=== PATIENT | female | born 1965 | race Caucasian/White ===

== ENCOUNTER → 2017-09-06 06:27 | Outpatient (CLI) | payer OTHER, SELFPAY ==
[2017-09-06 07:38] LABS: Absolute Lymphocyte Count 1.82 X10^3/ul (0.83-4.51); Absolute Neutrophil Count 4.2 X10^3/uL (2.0-7.7); Basophil# 0.06 X10^3/uL; Basophil% 0.9 % (0-1); Eosinophil# 0.26 X10^3/uL; Eosinophils% 3.7 % (0-5); Hematocrit 43.4 % (37-47); Lymphocyte # 1.82 X10^3/ul (4.0); Lymphocyte % 26.1 % (19-41); Mean Corp Hgb Conc 34.6 g/gl (32-36); Mean Corpuscular Hgb 30.9 pg (27.0-32.0); Mean Corpuscular Volume 89.3 fL (81-99); Mean Platelet Vol. 10.2 fl (6.2-12.0); Monocyte# 0.61 X10^3/uL; Monocyte% 8.8 % (0-10); Neutrophil # 4.22 X10^3/uL (2.7-7.7); Neutrophil % 60.5 % (47-70); Platelet Count 295 K/mm3 (150-450); RBC Distribution Width CV 12.7 % (11.6-14.6); RBC Distribution Width SD 41.2 fl (35.1-43.9); Red Blood Count 4.86 M/mm3 (4.2-5.4)
[2017-09-06 07:47] LABS: POSITIVE COUNT NO; POSITIVE DIFFERENTIAL NO; POSITIVE MORPHOLOGY NO
[2017-09-06 08:08] LABS: ALB/GLOB Ratio 1.1 RATIO (0.9-2.4); AST(SGOT) 14 U/L (15-37); Alanine Aminotransfer ALT/SGPT 28 U/L (13-56); Albumin, Serum 3.8 g/dL (3.2-5.0); Alkaline Phosphatase 84 U/L (45-117); Anion Gap 5 (5-15); BUN 17 mg/dL (7-18); BUN/Creat Ratio 29.2 RATIO (10-20); Calcium,Total 8.7 mg/dL (8.5-10.1); Chloride 106 mmol/L (98-107); Cholesterol 227 mg/dL (200); Creatinine, Serum 0.58 mg/dL (0.55-1.02); EST Glomerular Filtration Rate 115 mL/min (>60); Est Glom Filt Rate - Afr Amer 140 mL/min (>60); Globulin 3.4 g/dL (2.2-4.2); Glucose 84 mg/dL (74-106); High Density Lipoprotein 48 mg/dL; Protein, Total 7.2 g/dL (6.4-8.2); Sodium Level 139 mmol/L (136-145); Triglycerides 123 mg/dL; Very Low Density Lipoprotein 25 mg/dL (5-40)
== END ==
PROVIDERS: Family Provider Family Medicine; PCP Family Medicine; Visit Provider Family Medicine
DX: Z00.00 Encounter for general adult medical examination without abnormal findings (principal); I10 Essential (primary) hypertension
CPT/HCPCS: 36415; 80053; 80061; 85025

== ENCOUNTER → 2018-01-30 08:17 | Outpatient (CLI) | payer OTHER, SELFPAY ==
--- NOTE | 2018-01-30 08:20 | BI_ITS ---
MAMMOGRAPHY - BILATERAL SCREENING REASON FOR EXAM: Female, 53 years old. Routine annual screening examination. PERTINENT HISTORY: Non-contributory. TECHNIQUE: Digital bilateral breast juancarlos (3D mammographic acquisition) in the CC and MLO projections. 2-D mediolateral oblique (MLO) and craniocaudad (CC) views of both breasts were obtained. CAD: Full Field Digital Mammography with Computer Added Detection was performed. COMPARISON: Comparison is made with prior examination of March 17, 2015. FINDINGS: Breast Composition: There are scattered areas of fibroglandular density. There are no dominant masses or suspicious calcifications. Stable appearance of the small bilateral axillary lymph nodes. No other significant abnormalities are identified. There has been no significant change since the prior study. BI/SCREENING MAMM (CAD), BILAT IMPRESSION: Stable bilateral screening mammogram. Yearly follow-up mammogram recommended. (A) ASSESSMENT CATEGORY: BIRADS Category 2: Benign. A letter regarding these results will be sent to the patient by the facility within 30 days. Approximately 10% of breast cancers are not detected by mammography. A normal mammogram should not delay biopsy of a clinically suspicious abnormality. [id number] Electronically Signed: Jake Barfield MD at 13:15 EDT Tel [phone], Service support ,
== END ==
PROVIDERS: Family Provider Family Medicine; PCP Family Medicine; Visit Provider Family Medicine
DX: Z12.31 Encounter for screening mammogram for malignant neoplasm of breast (principal)
CPT/HCPCS: 77063; 77067

== ENCOUNTER → 2018-04-17 10:00 | Outpatient (CLI) | payer OTHER, SELFPAY ==
--- NOTE | 2018-04-17 10:04 | CDU_ITS ---
Reason For Study: Carotid Artery Disease Rt. Velocities/BP Lt. Velocities/BP Prox CCA 80/18 cm/sec. Prox CCA 101/27 cm/sec. Mid CCA 79/24 cm/sec. Mid CCA 100/29 cm/sec. Dist CCA 76/25 cm/sec. Dist CCA 77/29 cm/sec. Prox ICA 43/17 cm/sec. Prox ICA 60/20 cm/sec. Mid ICA 70/33 cm/sec. Mid ICA 68/29 cm/sec. Dist ICA 87/42 cm/sec. Dist ICA 85/45 cm/sec. Rt. ICA/CCA = 1.10. Lt. ICA/CCA = 0.85. Prox ECA 85/20 cm/sec. Prox ECA 72/17 cm/sec. Rt. Vert. 39/14 cm/sec. Lt. Vert. 35/15 cm/sec. Right Extracranial There is intimal thickening but no significant atherosclerotic plaque noted in the right common carotid artery. There is no significant atherosclerotic plaque noted in the right internal carotid artery. There is no significant atherosclerotic plaque noted in the right external carotid artery. Antegrade flow is noted in the right vertebral artery. Left Extracranial There is intimal thickening but no significant atherosclerotic plaque noted in the left common carotid artery. There is heterogeneous, irregular atherosclerotic plaque noted in the left internal carotid artery. There is no significant atherosclerotic plaque noted in the left external carotid artery. Antegrade flow is noted in the left vertebral artery. Procedure Carotid Duplex [id number]. Exam performed in department. Interpretation Summary No significant atherosclerotic plaque or stenosis noted in the right internal carotid artery. Mild (<50%) stenosis left extracranial internal carotid. Flow within the vertebral arteries is antegrade bilaterally. Ordering Physician: Pablo Kay Referring Physician: Pablo Kay Performed By: Gianna Sandoval, SHAUN, RVT
== END ==
PROVIDERS: Family Provider Family Medicine; PCP Family Medicine; Referring Provider Family Medicine; Visit Provider Family Medicine
DX: I77.9 Disorder of arteries and arterioles, unspecified (principal)
CPT/HCPCS: 93880

== ENCOUNTER → 2018-09-23 07:58 | Outpatient (CLI) | payer OTHER, SELFPAY ==
[2018-09-23 08:31] LABS: Absolute Lymphocyte Count 1.57 X10^3/ul (0.83-4.51); Absolute Neutrophil Count 3.5 X10^3/uL (2.0-7.7); Basophil# 0.04 X10^3/uL; Basophil% 0.7 % (0-1); Eosinophil# 0.22 X10^3/uL; Eosinophils% 3.8 % (0-5); Hematocrit 43.8 % (37-47); Hemoglobin 14.9 g/dl (12.0-15.0); Lymphocyte # 1.57 X10^3/ul (4.0); Lymphocyte % 27.2 % (19-41); Mean Corpuscular Hgb 29.7 pg (27.0-32.0); Mean Corpuscular Volume 87.3 fL (81-99); Mean Platelet Vol. 9.5 fl (6.2-12.0); Monocyte# 0.47 X10^3/uL; Monocyte% 8.1 % (0-10); Neutrophil # 3.47 X10^3/uL (2.7-7.7); Platelet Count 272 K/mm3 (150-450); RBC Distribution Width CV 12.6 % (11.6-14.6); RBC Distribution Width SD 39.2 fl (35.1-43.9); Red Blood Count 5.02 M/mm3 (4.2-5.4); White Blood Count 5.8 K/mm3 (4.4-11.0)
[2018-09-23 08:34] LABS: POSITIVE COUNT NO; POSITIVE DIFFERENTIAL NO; POSITIVE MORPHOLOGY NO
[2018-09-23 09:17] LABS: ALB/GLOB Ratio 1.2 RATIO (0.9-2.4); AST(SGOT) 18 U/L (15-37); Alanine Aminotransfer ALT/SGPT 26 U/L (13-56); Albumin, Serum 3.8 g/dL (3.2-5.0); Alkaline Phosphatase 93 U/L (45-117); Anion Gap 3 (5-15); BUN 14 mg/dL (7-18); BUN/Creat Ratio 24.3 RATIO (10-20); Calcium,Total 8.8 mg/dL (8.5-10.1); Chloride 106 mmol/L (98-107); Cholesterol 228 mg/dL (200); Creatinine, Serum 0.58 mg/dL (0.55-1.02); EST Glomerular Filtration Rate 116 mL/min (>60); Est Glom Filt Rate - Afr Amer 140 mL/min (>60); Globulin 3.3 g/dL (2.2-4.2); Glucose 100 mg/dL (74-106); High Density Lipoprotein 51 mg/dL; Potassium 4.4 mmol/L (3.5-5.1); Protein, Total 7.1 g/dL (6.4-8.2); Sodium Level 136 mmol/L (136-145); Triglycerides 132 mg/dL; Very Low Density Lipoprotein 26 mg/dL (5-40)
[2018-09-25 12:58] LABS: Hep B Surface Antibodies Non Reactive (.)
== END ==
PROVIDERS: Family Provider Family Medicine; PCP Family Medicine; Referring Provider Family Medicine; Visit Provider Family Medicine
DX: Z00.00 Encounter for general adult medical examination without abnormal findings (principal); Z23 Encounter for immunization
CPT/HCPCS: 36415; 80053; 80061; 85025; 86706; 86765

== ENCOUNTER → 2019-07-26 06:58 | Outpatient (CLI) | payer OTHER, SELFPAY ==
[2019-07-26 07:57] LABS: Absolute Neutrophil Count 3.8 X10^3/uL (2.0-7.7); Basophil# 0.04 X10^3/uL; Basophil% 0.6 % (0-1); Hemoglobin 15.2 g/dL (12.0-15.0); Lymphocyte % 28.7 % (19-41); Mean Corpuscular Hgb 29.9 pg (27.0-32.0); Mean Corpuscular Volume 90.4 fL (81-99); Mean Platelet Vol. 9.9 fl (6.2-12.0); Monocyte# 0.65 X10^3/uL; Monocyte% 9.8 % (0-10); NRBC Flagged by Analyzer 0 % (0-5); Neutrophil % 57.6 % (47-70); Platelet Count 288 K/mm3 (150-450); RBC Distribution Width CV 12.4 % (11.6-14.6); RBC Distribution Width SD 40.9 fl (35.1-43.9); Red Blood Count 5.09 M/mm3 (4.2-5.4); White Blood Count 6.6 K/mm3 (4.4-11.0)
[2019-07-26 08:31] LABS: ALB/GLOB Ratio 1.1 RATIO (0.9-2.4); AST(SGOT) 18 U/L (15-37); Alanine Aminotransfer ALT/SGPT 36 U/L (13-56); Albumin, Serum 3.9 g/dL (3.2-5.0); Alkaline Phosphatase 89 U/L (45-117); Anion Gap 4 (5-15); BUN 16 mg/dL (7-18); BUN/Creat Ratio 28.4 RATIO (10-20); Calcium,Total 9.3 mg/dL (8.5-10.1); Chloride 107 mmol/L (98-107); Cholesterol 252 mg/dL (200); Creatinine, Serum 0.56 mg/dL (0.55-1.02); EST Glomerular Filtration Rate 119 mL/min (>60); Est Glom Filt Rate - Afr Amer 144 mL/min (>60); Globulin 3.6 g/dL (2.2-4.2); Glucose 99 mg/dL (74-106); High Density Lipoprotein 54 mg/dL; Potassium 4.4 mmol/L (3.5-5.1); Protein, Total 7.5 g/dL (6.4-8.2); Sodium Level 140 mmol/L (136-145); T4 Free Direct 1.12 ng/dL (0.76-1.46); Thyroid Stim Hormone (TSH) 3.88 uIU/mL (0.358-3.74); Triglycerides 88 mg/dL; Very Low Density Lipoprotein 18 mg/dL (5-40)
== END ==
LOC: LAB.FUTURE 07:00 → LAB 07:04
PROVIDERS: PCP Family Medicine; Referring Provider Family Medicine; Visit Provider Family Medicine
DX: Z00.00 Encounter for general adult medical examination without abnormal findings (principal); L65.9 Nonscarring hair loss, unspecified
CPT/HCPCS: 36415; 80053; 80061; 84439; 84443; 85025

== ENCOUNTER → 2019-12-24 10:27 | Outpatient (CLI) | payer OTHER, SELFPAY ==
[2019-12-24 12:34] LABS: Cholesterol 246 mg/dL (200); High Density Lipoprotein 51 mg/dL; T4 Free Direct 1.15 ng/dL (0.76-1.46); Thyroid Stim Hormone (TSH) 2.92 uIU/mL (0.358-3.74); Triglycerides 152 mg/dL; Very Low Density Lipoprotein 30 mg/dL (5-40)
== END ==
PROVIDERS: PCP Family Medicine; Visit Provider Family Medicine
DX: E78.5 Hyperlipidemia, unspecified (principal); R94.6 Abnormal results of thyroid function studies
CPT/HCPCS: 36415; 80061; 84439; 84443

== ENCOUNTER → 2021-01-24 07:14 | Outpatient (CLI) | payer OTHER, SELFPAY ==
[2021-01-24 08:11] LABS: Absolute Lymphocyte Count 1.98 X10^3/uL (0.83-4.51); Absolute Neutrophil Count 3.8 X10^3/uL (2.0-7.7); Basophil# 0.07 X10^3/uL; Basophil% 1.1 % (0-1); Eosinophil# 0.17 X10^3/uL; Eosinophils% 2.6 % (0-5); Hemoglobin 14.7 g/dL (12.0-15.0); Lymphocyte # 1.98 X10^3/ul (0.83-4.51); Lymphocyte % 30.2 % (19-41); Mean Corp Hgb Conc 33.4 g/dL (32-36); Mean Corpuscular Hgb 30.4 pg (27.0-32.0); Mean Corpuscular Volume 91.1 fL (81-99); Mean Platelet Vol. 10.1 fl (6.2-12.0); Monocyte# 0.55 X10^3/uL; Monocyte% 8.4 % (0-10); NRBC Flagged by Analyzer 0 % (0-5); Neutrophil # 3.78 X10^3/uL (2.7-7.7); Neutrophil % 57.5 % (47-70); Platelet Count 308 K/mm3 (150-450); RBC Distribution Width CV 12.1 % (11.6-14.6); RBC Distribution Width SD 40.6 fl (35.1-43.9); Red Blood Count 4.83 M/mm3 (4.2-5.4); White Blood Count 6.6 K/mm3 (4.4-11.0)
[2021-01-24 08:30] LABS: Hemoglobin A1c 5.4 % (3.8-5.6)
[2021-01-24 08:39] LABS: ALB/GLOB Ratio 1.1 RATIO (0.9-2.4); AST(SGOT) 13 U/L (15-37); Alanine Aminotransfer ALT/SGPT 33 U/L (13-56); Albumin, Serum 3.6 g/dL (3.2-5.0); Alkaline Phosphatase 77 U/L (45-117); Anion Gap 5 (5-15); BUN 19 mg/dL (7-18); BUN/Creat Ratio 31.1 RATIO (10-20); Calcium,Total 8.6 mg/dL (8.5-10.1); Chloride 106 mmol/L (98-107); Cholesterol 250 mg/dL (200); Creatinine, Serum 0.61 mg/dL (0.55-1.02); EST Glomerular Filtration Rate 108 mL/min (>60); Est Glom Filt Rate - Afr Amer 131 mL/min (>60); Globulin 3.2 g/dL (2.2-4.2); Glucose 95 mg/dL (74-106); High Density Lipoprotein 48 mg/dL; Potassium 4.2 mmol/L (3.5-5.1); Protein, Total 6.8 g/dL (6.4-8.2); Sodium Level 138 mmol/L (136-145); Thyroid Stim Hormone (TSH) 3.55 uIU/mL (0.358-3.74); Triglycerides 163 mg/dL; Very Low Density Lipoprotein 33 mg/dL (5-40)
== END ==
PROVIDERS: PCP Family Medicine; Referring Provider Family Medicine; Visit Provider Family Medicine
DX: Z00.00 Encounter for general adult medical examination without abnormal findings (principal); R73.01 Impaired fasting glucose; R79.89 Other specified abnormal findings of blood chemistry
CPT/HCPCS: 36415; 80053; 80061; 83036; 84439; 84443; 85025

== ENCOUNTER → 2022-01-23 | Outpatient (CLI) | payer OTHER, SELFPAY ==
[2022-01-23 09:36] LABS: Absolute Lymphocyte Count 1.87 X10^3/uL (0.83-4.51); Absolute Neutrophil Count 4.3 X10^3/uL (2.0-7.7); Basophil# 0.06 X10^3/uL; Basophil% 0.9 % (0-1); Eosinophil# 0.16 X10^3/uL; Eosinophils% 2.3 % (0-5); Hematocrit 43.6 % (37-47); Hemoglobin 14.6 g/dL (12.0-15.0); Lymphocyte # 1.87 X10^3/ul (0.83-4.51); Lymphocyte % 26.9 % (19-41); Mean Corp Hgb Conc 33.5 g/dL (32-36); Mean Corpuscular Hgb 30.5 pg (27.0-32.0); Mean Corpuscular Volume 91.2 fL (81-99); Mean Platelet Vol. 9.2 fl (6.2-12.0); Monocyte# 0.58 X10^3/uL; Monocyte% 8.3 % (0-10); NRBC Flagged by Analyzer 0 % (0-5); Neutrophil # 4.28 X10^3/uL (2.7-7.7); Neutrophil % 61.5 % (47-70); Platelet Count 333 K/mm3 (150-450); RBC Distribution Width CV 12.5 % (11.6-14.6); RBC Distribution Width SD 41.1 fl (35.1-43.9); Red Blood Count 4.78 M/mm3 (4.2-5.4)
[2022-01-23 09:52] LABS: Hemoglobin A1c 5.6 % (3.8-5.6)
[2022-01-23 10:05] LABS: ALB/GLOB Ratio 1.1 RATIO (0.9-2.4); AST(SGOT) 17 U/L (15-37); Alanine Aminotransfer ALT/SGPT 29 U/L (13-56); Albumin, Serum 3.8 g/dL (3.2-5.0); Alkaline Phosphatase 86 U/L (45-117); Anion Gap 4 (5-15); BUN 16 mg/dL (7-18); BUN/Creat Ratio 26.3 RATIO (10-20); Calcium,Total 9.2 mg/dL (8.5-10.1); Chloride 105 mmol/L (98-107); Cholesterol 255 mg/dL (200); Creatinine, Serum 0.61 mg/dL (0.55-1.02); EST Glomerular Filtration Rate 108 mL/min (>60); Est Glom Filt Rate - Afr Amer 131 mL/min (>60); Globulin 3.5 g/dL (2.2-4.2); Glucose 98 mg/dL (74-106); High Density Lipoprotein 60 mg/dL; Protein, Total 7.3 g/dL (6.4-8.2); Sodium Level 138 mmol/L (136-145); T4 Free Direct 1.03 ng/dL (0.76-1.46); Thyroid Stim Hormone (TSH) 2.96 uIU/mL (0.358-3.74); Triglycerides 124 mg/dL; Very Low Density Lipoprotein 25 mg/dL (5-40)
== END | disposition home or self-care (01) ==
LOC: LAB 09:21
PROVIDERS: PCP Family Medicine; Referring Provider Family Medicine; Visit Provider Family Medicine
DX: Z00.00 Encounter for general adult medical examination without abnormal findings (principal); R79.89 Other specified abnormal findings of blood chemistry; R73.01 Impaired fasting glucose
CPT/HCPCS: 36415; 80053; 80061; 83036; 84439; 84443; 85025

== ENCOUNTER → 2022-02-03 | Outpatient (CLI) | payer OTHER, SELFPAY ==
--- NOTE | 2022-02-03 07:05 | BI_ITS ---
MAMMOGRAPHY - BILATERAL SCREENING REASON FOR EXAM: Female, 57 years old. Routine annual screening examination. PERTINENT HISTORY: Non-contributory. TECHNIQUE: Digital bilateral breast rona (3D mammographic acquisition) in the CC and MLO projections. 2-D mediolateral oblique (MLO) and craniocaudad (CC) views of both breasts were obtained. CAD: Full Field Digital Mammography with Computer Added Detection was performed. COMPARISON: Comparison is made with prior study 01/30/2018 and 03/17/2015. FINDINGS: Breast Composition: The breasts are almost entirely fatty. There are no dominant masses or suspicious calcifications. Stable benign-appearing bilateral axillary lymph nodes. No other significant abnormalities are identified. There has been no significant change since the prior study. BI/SCRN MAMM (CAD)W/RONA BILAT IMPRESSION: Stable bilateral screening mammogram. Yearly follow-up mammogram recommended. (A) ASSESSMENT CATEGORY: BIRADS Category 2: Benign. A letter regarding these results will be sent to the patient by the facility within 30 days. Approximately 10% of breast cancers are not detected by mammography. A normal mammogram should not delay biopsy of a clinically suspicious abnormality. [id number] Electronically Signed: Jake Barfield MD at 8:47 EDT ,
== END | disposition home or self-care (01) ==
LOC: OPBI 07:04
PROVIDERS: PCP Family Medicine; Referring Provider Family Medicine; Visit Provider Family Medicine
DX: Z12.31 Encounter for screening mammogram for malignant neoplasm of breast (principal)
CPT/HCPCS: 77063; 77067

== ENCOUNTER → 2022-04-10 | Outpatient (CLI) | payer OTHER, SELFPAY ==
[2022-04-10 08:45] LABS: ALB/GLOB Ratio 1.2 RATIO (0.9-2.4); AST(SGOT) 13 U/L (15-37); Alanine Aminotransfer ALT/SGPT 29 U/L (13-56); Albumin, Serum 3.7 g/dL (3.2-5.0); Alkaline Phosphatase 83 U/L (45-117); Anion Gap 4 (5-15); BUN 14 mg/dL (7-18); BUN/Creat Ratio 24.4 RATIO (10-20); Calcium,Total 9.3 mg/dL (8.5-10.1); Chloride 105 mmol/L (98-107); Cholesterol 153 mg/dL (200); Creatinine, Serum 0.57 mg/dL (0.55-1.02); EST Glomerular Filtration Rate 115 mL/min (>60); Est Glom Filt Rate - Afr Amer 139 mL/min (>60); Globulin 3.2 g/dL (2.2-4.2); Glucose 101 mg/dL (74-106); High Density Lipoprotein 68 mg/dL; Potassium 4.3 mmol/L (3.5-5.1); Protein, Total 6.9 g/dL (6.4-8.2); Sodium Level 139 mmol/L (136-145); Triglycerides 58 mg/dL; Very Low Density Lipoprotein 12 mg/dL (5-40)
== END | disposition home or self-care (01) ==
LOC: LAB 07:52
PROVIDERS: PCP Family Medicine; Referring Provider Family Medicine; Visit Provider Family Medicine
DX: I10 Essential (primary) hypertension (principal); E78.5 Hyperlipidemia, unspecified
CPT/HCPCS: 36415; 80053; 80061

== ENCOUNTER → 2023-01-31 | Outpatient (CLI) | payer OTHER, SELFPAY ==
--- NOTE | 2023-01-31 07:35 | RAD_ITS ---
HISTORY: R SHOULDER PAIN. TECHNIQUE: XR Shoulder Min 2 Views. COMPARISON: None. FINDINGS: BONES : No acute fracture identified. Mineralization unremarkable. JOINTS: No dislocation. Mild acromioclavicular degenerative change. SOFT TISSUES: Right lung apex clear. RAD/Shoulder min 2 Views IMPRESSION: No acute fracture or dislocation identified in the right shoulder. Mild degenerative change. Electronically Signed: Klarissa Ackerman MD at 8:15 EDT ,
[2023-01-31 08:38] LABS: Erythrocyte Sedimentation Rate 2 mm/hr (0-30)
[2023-01-31 08:41] LABS: Absolute Lymphocyte Count 2.05 X10^3/uL (0.83-4.51); Absolute Neutrophil Count 6.3 X10^3/uL (2.0-7.7); Basophil# 0.06 X10^3/uL; Basophil% 0.7 % (0-1); Eosinophil# 0.14 X10^3/uL; Eosinophils% 1.5 % (0-5); Hematocrit 44.1 % (37-47); Hemoglobin 14.7 g/dL (12.0-15.0); Lymphocyte # 2.05 X10^3/ul (0.83-4.51); Lymphocyte % 22.3 % (19-41); Mean Corp Hgb Conc 33.3 g/dL (32-36); Mean Corpuscular Hgb 31.2 pg (27.0-32.0); Mean Corpuscular Volume 93.6 fL (81-99); Mean Platelet Vol. 9.1 fl (6.2-12.0); Monocyte% 6.5 % (0-10); NRBC Flagged by Analyzer 0 % (0-5); Neutrophil % 68.7 % (47-70); Platelet Count 364 K/mm3 (150-450); RBC Distribution Width CV 12.2 % (11.6-14.6); RBC Distribution Width SD 42.4 fl (35.1-43.9); Red Blood Count 4.71 M/mm3 (4.2-5.4); White Blood Count 9.2 K/mm3 (4.4-11.0)
[2023-01-31 08:46] LABS: ALB/GLOB Ratio 1.1 RATIO (0.9-2.4); AST(SGOT) 15 U/L (15-37); Alanine Aminotransfer ALT/SGPT 25 U/L (13-56); Albumin, Serum 3.6 g/dL (3.2-5.0); Alkaline Phosphatase 80 U/L (45-117); Anion Gap 4 (5-15); BUN 16 mg/dL (7-18); Calcium,Total 9.3 mg/dL (8.5-10.1); Chloride 105 mmol/L (98-107); Cholesterol 161 mg/dL (200); Creatinine, Serum 0.67 mg/dL (0.55-1.02); EST Glomerular Filtration Rate 97 mL/min (>60); Est Glom Filt Rate - Afr Amer 117 mL/min (>60); Globulin 3.4 g/dL (2.2-4.2); Glucose 83 mg/dL (74-106); High Density Lipoprotein 63 mg/dL; Potassium 3.7 mmol/L (3.5-5.1); Rheumatoid Factor < 10.0 IU/mL (<15); Sodium Level 137 mmol/L (136-145); Thyroid Stim Hormone (TSH) 3.97 uIU/mL (0.358-3.74); Triglycerides 72 mg/dL; Very Low Density Lipoprotein 14 mg/dL (5-40)
[2023-01-31 09:22] LABS: Hemoglobin A1c 5.2 % (3.8-5.6)
[2023-02-01 13:07] LABS: CCP IgG Antibodies 4 units (0-19)
== END | disposition home or self-care (01) ==
LOC: LAB 07:30
PROVIDERS: PCP Family Medicine; Referring Provider Family Medicine; Visit Provider Family Medicine
DX: Z00.00 Encounter for general adult medical examination without abnormal findings (principal); I10 Essential (primary) hypertension; M25.571 Pain in right ankle and joints of right foot; M25.511 Pain in right shoulder
CPT/HCPCS: 36415; 73030; 80053; 80061; 83036; 84443; 84550; 85025; 85652; 86200; 86431

== ENCOUNTER → 2023-04-01 | Outpatient (CLI) | payer OTHER, SELFPAY ==
[2023-04-01 09:46] LABS: T4 Free Direct 1.14 ng/dL (0.76-1.46); Thyroid Stim Hormone (TSH) 3.44 uIU/mL (0.358-3.74)
[2023-04-04 16:08] LABS: Thyroglobulin Antibody < 1.0 IU/mL (0.0-0.9); Thyroid Peroxidase AB < 9 IU/mL (0-34)
== END | disposition home or self-care (01) ==
PROVIDERS: PCP Family Medicine; Referring Provider Family Medicine; Visit Provider Family Medicine
DX: R79.89 Other specified abnormal findings of blood chemistry (principal)
CPT/HCPCS: 36415; 84439; 84443; 86376; 86800

== ENCOUNTER → 2023-04-08 | Outpatient (CLI) | payer OTHER, SELFPAY ==
--- NOTE | 2023-04-08 07:24 | BI_ITS ---
MAMMOGRAPHY - BILATERAL SCREENING REASON FOR EXAM: Female, 58 years old. Routine annual screening examination. PERTINENT HISTORY: Non-contributory. TECHNIQUE: Digital bilateral breast rona (3D mammographic acquisition) in the CC and MLO projections. 2-D mediolateral oblique (MLO) and craniocaudad (CC) views of both breasts were obtained. CAD: Full Field Digital Mammography with Computer Added Detection was performed. COMPARISON: Comparison is made with prior study of February 03, 2022 and January 30, 2018. FINDINGS: Breast Composition: The breasts are almost entirely fatty. There are no dominant masses or suspicious calcifications. Stable benign-appearing bilateral fat containing lymph nodes. No other significant abnormalities are identified. There has been no significant change since the prior study. BI/SCRN MAMM (CAD)W/RONA BILAT IMPRESSION: Stable bilateral screening mammogram. Yearly follow-up mammogram recommended. (A) ASSESSMENT CATEGORY: BIRADS Category 2: Benign. A letter regarding these results will be sent to the patient by the facility within 30 days. Approximately 10% of breast cancers are not detected by mammography. A normal mammogram should not delay biopsy of a clinically suspicious abnormality. [id number] Electronically Signed: Jake Barfield MD at 9:12 EST ,
== END | disposition home or self-care (01) ==
LOC: OPBI 07:20
PROVIDERS: PCP Family Medicine; Referring Provider Family Medicine; Visit Provider Family Medicine
DX: Z12.31 Encounter for screening mammogram for malignant neoplasm of breast (principal)
CPT/HCPCS: 77063; 77067

== ENCOUNTER → 2023-04-18 | Outpatient (CLI) | payer OTHER, SELFPAY ==
--- NOTE | 2023-04-18 08:45 | CDU_ITS ---
Reason For Study: Carotid Stenosis Rt. Velocities/BP Lt. Velocities/BP Prox CCA 91.6/20.1 cm/sec. Prox CCA 96.0/24.5 cm/sec. Mid CCA 75.1/17.9 cm/sec. Mid CCA 76.8/25.8 cm/sec. Dist CCA 93.8/33.3 cm/sec. Dist CCA 73.0/25.8 cm/sec. Prox ICA 68.3/17.3 cm/sec. Prox ICA 43.0/12.9 cm/sec. Mid ICA 73.0/27.7 cm/sec. Mid ICA 55.6/23.6 cm/sec. Dist ICA 71.1/31.5 cm/sec. Dist ICA 55.8/25.8 cm/sec. Rt. ICA/CCA = 1.0. Lt. ICA/CCA = 0.7. Prox ECA 67.4/12.6 cm/sec. Prox ECA 76.2/18.6 cm/sec. Rt. Vert. 29.9/11.7 cm/sec. Lt. Vert. 34.9/15.3 cm/sec. Right Extracranial There is intimal thickening but no significant atherosclerotic plaque noted in the right common carotid artery. There is heterogeneous, irregular atherosclerotic plaque noted in the right internal carotid artery. There is intimal thickening but no significant atherosclerotic plaque noted in the right external carotid artery. Antegrade flow is noted in the right vertebral artery. Left Extracranial There is intimal thickening but no significant atherosclerotic plaque noted in the left common carotid artery. There is heterogeneous, irregular atherosclerotic plaque noted in the left internal carotid artery. There is intimal thickening but no significant atherosclerotic plaque noted in the left external carotid artery. Antegrade flow is noted in the left vertebral artery. Procedure Carotid Duplex [id number]. This is a Carotid Duplex examination using B-mode, color flow and specral Doppler. The exam was diagnostic. Exam performed in department. VL/Carotid Duplex Ultrasound Interpretation Summary Tortuous right common carotid artery Irregular plaque at the proximal right internal carotid artery with less than 5 0% stenosis Less than 50% stenosis right external carotid artery Irregular calcific plaque with shadowing at the proximal left internal carotid artery with less than 50% stenosis Less than 50% stenosis left external carotid artery Patent antegrade vertebral arteries bilaterally Ordering Physician: Pablo Kay Referring Physician: Pablo Kay Performed By: Nahun Mistry RVT
== END | disposition home or self-care (01) ==
LOC: CVS 08:43
PROVIDERS: PCP Family Medicine; Referring Provider Family Medicine; Visit Provider Family Medicine
DX: I65.23 Occlusion and stenosis of bilateral carotid arteries (principal)
CPT/HCPCS: 93880

== ENCOUNTER 2023-06-27 08:50 | Emergency (ER) | payer OTHER, SELFPAY ==
[2023-06-27 08:51] VITALS: BP 135/87; PULSE 88; RESP 16; TEMP 36.6; O2SAT 96; BMI 34.6
--- NOTE | 2023-06-27 09:12 | CT_ITS ---
STUDY: CT ABDOMEN AND PELVIS WITH CONTRAST REASON FOR EXAM: Female, 58 years old. 5 day history of nausea and vomiting. Syncopal episodes. RADIATION DOSAGE (If Supplied By Facility): CTDIvol = ( 16.58 ) mGy, DLP = ( 1271.65 ) mGycm TECHNIQUE: Transaxial images were obtained from the dome of the diaphragm to the symphysis pubis without oral contrast. IV 100mL Isovue-300 was administered. Sagittal and coronal images were reconstructed. Individualized dose optimization techniques were used for this CT. COMPARISON: None. FINDINGS: The visualized lung bases are unremarkable. Coronary artery calcification. There is decreased attenuation of the liver consistent with steatosis. Normal gallbladder and extrahepatic biliary system. There are multiple benign calcified granulomata of the spleen. Normal pancreas. Normal bilateral adrenal glands. Normal right kidney. Normal left kidney. Normal visualized stomach. Normal small intestine. There is air and fluid distention of the ascending colon and transverse colon. There is a transition point in the mid descending colon. Distal colon is not distended. Scattered sigmoid diverticula. The appendix is visualized and appears normal. There is diffuse atherosclerotic calcification of the abdominal aorta, without a demonstrated aneurysm. Normal inferior vena cava. Normal retroperitoneum. Normal urinary bladder. There is a small umbilical hernia containing fat. Grade 1 anterior listhesis of L4 on L5 with spondylolysis of the pars intraarticularis of the L4 vertebrae. CT/Abdomen/Pelvis W IV Cont ONLY IMPRESSION: Gaseous and fluid distention of the ascending colon and transverse colon down to the mid descending colon where there is a transition point. Nonobstructive abnormality should be ruled out. Electronically Signed: Jake Barfield MD at 10:54 EST ,
--- NOTE | 2023-06-27 09:12 | EX.ED.DYSGE1 ---
HPI History of Present Illness Chief Complaint: Nausea/Vomiting Narrative Narrative: 58-year-old female past medical history of hypertension, migraines, presents with nausea, vomiting, and diarrhea that she has had for the last 6 days. States her symptoms started on Tuesday, and seemed to improve a few days later. However, they tended to return with 1 episode of vomiting in the last 24 hours, and loose stool that is improving after she took the Imodium on Tuesday, 2 days ago. She relates history that she is feeling very near syncopal, and lightheaded at work today. However, yesterday evening, she had 3 syncopal episodes that were reported by her . She had fallen and hit the left side of her head last evening on a portable heater. She needed help getting up from going to the bathroom. He finally got her back to bed and she try to go to work today but feels generally weak and lightheaded with a mild headache. She is concerned that she is dehydrated. [facility] Medical History Allergies Arthritis Carpal tunnel syndrome Glaucoma High blood pressure History of migraine headaches Skin cancer Home Medications ascorbate calcium (vitamin C) 500 mg tablet 500 mg PO DAILY 04/27/21 [History Last Taken Unknown] budesonide 32 mcg/actuation nasal spray 2 spray intranasal DAILY 04/27/21 [History Last Taken Unknown] calcium carbonate 400 mg calcium (1,000 mg) chewable tablet (Antacid Ultra Strength) 1,200 mg PO BID 04/27/21 [History Last Taken Unknown] cetirizine 10 mg capsule (Zyrtec) 10 mg PO DAILY PRN allergy symptoms 04/27/21 [History Last Taken Unknown] cinnamon bark 500 mg capsule (Cinnamon) 500 mg PO DAILY 04/27/21 [History Last Taken Unknown] irbesartan 300 mg tablet 300 mg PO DAILY 04/27/21 [History Last Taken Unknown] iron 150 mg-vit C 60 mg-folate 1 [id number] tablet 1 tab PO DAILY 04/27/21 [History Last Taken Unknown] latanoprost 0.005 % eye drops 1 drp ophthalmic (eye) DAILY 04/27/21 [History Last Taken Unknown] multivitamin (Daily Multi-Vitamin tablet) 1 tab PO DAILY 04/27/21 [History Last Taken Unknown] amlodipine 5 mg tablet 5 mg PO DAILY #90 tabs 10/27/22 [Rx Last Taken Unknown] nortriptyline 25 mg capsule 50 mg (2 x 25 mg) PO QHS #180 caps 10/27/22 [Rx Last Taken Unknown] ubrogepant 100 mg tablet (Ubrelvy) 100 mg .Route .COMPLEX migraine headache #8 tabs 10/27/22 [Rx Last Taken Unknown] ondansetron 4 mg disintegrating tablet 4 mg PO Q6H PRN nausea and vomiting #15 tabs 06/27/23 [Rx Last Taken Unknown] rosuvastatin 10 mg tablet 10 mg PO DAILY 06/27/23 [History Last Taken Unknown] timolol maleate 0.5 % eye drops 1 drp ophthalmic (eye) DAILY 06/27/23 [History Last Taken Unknown] Allergy/AdvReac Type Severity Reaction Status Date / Time No Known Allergies Allergy Verified 06/27/23 08:53 Family History Father Arthritis Cancer Mother Diabetes Hypertension High cholesterol Brother Diabetes Sister Diabetes Grandmother Myocardial infarction Grandfather CVA (cerebral vascular accident) Surgical History History of basal cell carcinoma excision History of History of carpal tunnel surgery History of tubal ligation Ovarian cyst Social History Smoking Status: Never smoker second hand exposure: No alcohol intake: current substance use type: does not use what type of physical activity do you participate in: bicycling alla/yazdanism: [employer]Boon seatbelt use: always ROS ROS ED ROS Narrative Constitutional: No fever, no chills. HEENT: No sore throat. No neck pain. No loss of vision. No rhinorrhea. Cardiovascular: No chest pain. No palpitations. No pedal edema. Respiratory: No cough, no shortness of breath. Abdominal: Mild diffuse abdominal pain. Multiple episodes of nausea and vomiting and diarrhea, all nonbloody over the last 6 days. Genitourinary: No dysuria. No hematuria. Musculoskeletal: No myalgias. No arthralgias. Neurologic: Mild headaches. No dizziness. Positive for lightheadedness. Reported 3 syncopal episodes yesterday. Skin: No rash. No change in color. Psychiatric: No depression. No anxiety. EXAM Physical Exam Const Vital Signs: 06/27/23 08:51 Temperature 97.8 F Temperature Source Temporal Pulse Rate 88 Respiratory Rate 16 Blood Pressure 135/87 H Blood Pressure Mean 103 Pulse Ox 96 Oxygen Delivery Method Room Air MDM MDM MDM Narrative Medical decision making narrative: In the differential diagnosis is gastroenteritis causing intravascular volume depletion versus dehydration. She may have an electrolyte imbalance such as hyponatremia or hypokalemia given her multiple episodes of vomiting and diarrhea. She is awake, alert, and oriented x 3, and has full range of motion of her neck without pain. She does not take blood thinners. I do not feel CT of the brain or C-spine is indicated and this was discussed with the patient who agrees. However, given her return of diarrhea and vomiting, also the differential diagnosis would be partial bowel obstruction. I do feel CT imaging of the abdomen pelvis is indicated. I will also obtain baseline laboratories and CBC, CMP, and lipase along with urinalysis. Patient is postmenopausal so I do not feel that test is indicated. She will be bolused 2 L of normal saline. She was offered ondansetron for vomiting but declined, stating she is not nauseated currently. I reviewed her laboratory work and she has slightly elevated white count of 11.3 which I think is nonspecific, hemoglobin normal at 14.9, platelet count normal at 379. Chloride is slightly elevated at 108 with a BUN of 22 and creatinine 0.7 consistent with very mild dehydration. She was bolused IV fluids. Urinalysis was reviewed and is negative for ketones, negative for infection. I do not feel antibiotics are indicated. I reviewed the CT report and she has air-fluid levels throughout her ascending and transverse colon and midway through the descending colon there is a transition point. Patient is not showing any signs of obstruction. She is still passing gas and stating she was having liquid bowel movements yesterday. As there was mention of a transition point, I discussed the patient with Dr. Gallo who did review the CT report and agrees that the patient can be discharged to follow-up with him as an outpatient for colonoscopy. Treatment be symptomatic for her nausea, vomiting, and diarrhea. I do feel that she probably had vasovagal syncope as she states she became nauseated prior to her reported syncopal episodes. She was written a prescription for Zofran in case she needs it. She will follow-up with her primary care physician in 3 to 5 days as well. I feel she can be discharged to follow-up. Return instructions to the emergency department were reviewed. Disposition is discharged home in stable condition. History & Record Review Discussion w/independent historian: Patient Additional record(s) reviewed:: Prior ED visit and Prior labs Lab Data Attestation: I reviewed the patient's lab results. Labs: Laboratory Results - last 24 hr 06/27/23 06/27/23 09:15 10:31 WBC 11.3 H RBC 4.97 Hgb 14.9 Hct 44.0 MCV 88.5 MCH 30.0 MCHC 33.9 RDW Std Deviation 41.1 RDW Coeff of Armen 12.6 Plt Count 379 MPV 9.4 Immature Gran % (Auto) 0.300 Neut % (Auto) 77.6 H Lymph % (Auto) 13.3 L Fountain % (Auto) 7.3 Eos % (Auto) 1.2 Baso % (Auto) 0.3 Absolute Neuts (auto) 8.7 H Absolute Lymphs (auto) 1.50 Nucleated RBC % 0 Sodium 138 Potassium 3.7 Chloride 108 H Carbon Dioxide 25.0 Anion Gap 5 BUN 22 H Creatinine 0.70 Estim Creat Clear Calc 85.61 Est GFR (MDRD) Af Amer 111 Est GFR (MDRD) Non-Af 92 BUN/Creatinine Ratio 31.7 H Glucose 109 H Calcium 9.1 Total Bilirubin 0.40 AST 12 L ALT 22 Alkaline Phosphatase 92 Troponin I High Sens 7 Total Protein 7.2 Albumin 3.7 Globulin 3.5 Albumin/Globulin Ratio 1.1 Lipase 38 Urine Color Yellow Urine Clarity Clear Urine pH 5.0 Ur Specific Simpson 1.010 Urine Protein 15 H Urine Glucose (UA) Normal Urine Ketones Negative Urine Occult Blood Negative Urine Nitrite Negative Urine Bilirubin Negative Urine Urobilinogen Normal Ur Leukocyte Esterase 25 H Urine RBC 0 SEEN Urine WBC 0-5 SEEN Ur Squamous Epith Cells 0-5 SEEN Urine Bacteria 0 SEEN Urine Mucus 0 SEEN Radiography Diagnostic Testing: Clinical Impression(s) from Imaging Studies Abdomen/Pelvis CT 06/27/23 09:12 IMPRESSION: Gaseous and fluid distention of the ascending colon and transverse colon down to the mid descending colon where there is a transition point. Nonobstructive abnormality should be ruled out. Electronically Signed: Jake Barfield MD at 10:54 EST , Discharge Plan Triage Chief Complaint: Nausea/Vomiting ED Provider: Star Nguyen Dx/Rx/DC Orders Clinical Impression: Nausea vomiting and diarrhea, Syncope, Dehydration Instructions: ED Fainting, Vagal Reaction, ED Vomit Diarrhea Nonspec Adult Prescriptions: New ondansetron 4 mg tablet,disintegrating 4 mg PO Q6H PRN (Reason: nausea and vomiting) Qty: 15 0RF No Action irbesartan 300 mg tablet 300 mg PO DAILY iron ag,[id number] 150 mg iron- 60 mg-1 mg tablet 1 tab PO DAILY budesonide 32 mcg/actuation spray,non-aerosol 2 spray intranasal DAILY Rx Instructions: administer into each nostril calcium carbonate [Antacid Ultra Strength] 400 mg calcium (1,000 mg) tablet,chewable 1,200 mg PO BID latanoprost 0.005 % drops 1 drp ophthalmic (eye) DAILY multivitamin [Daily Multi-Vitamin] Tablet 1 tab PO DAILY ascorbate calcium (vitamin C) 500 mg tablet 500 mg PO DAILY cinnamon bark [Cinnamon] 500 mg capsule 500 mg PO DAILY Zyrtec 10 mg capsule 10 mg PO DAILY PRN (Reason: allergy symptoms) amlodipine 5 mg tablet 5 mg PO DAILY Qty: 90 2RF nortriptyline 25 mg capsule 50 mg PO QHS Qty: 180 2RF Ubrelvy 100 mg tablet 100 mg .ROUTE .COMPLEX Qty: 8 10RF Rx Instructions: Take one tablet PO q2 hours prn headache up to two tablets daily timolol maleate 0.5 % drops 1 drp ophthalmic (eye) DAILY Patient Comments: INSTILL 1 DROP EVERY DAY INTO EACH EYE IN THE MORNING rosuvastatin 10 mg tablet 10 mg PO DAILY Patient Comments: TAKE 1 TABLET BY MOUTH EVERY DAY Primary Care Provider: Pablo Kay Referrals: Jb Gallo MD [Med Staff - Active Staff] - As Needed Pablo Kay DO [Primary Care Provider] - 3-5 Days if not improving Activity Restrictions/Additional Instructions: Follow-up with Dr. Gallo for colonoscopy as soon as possible/in the future. Disposition Disposition: Home, Self Care
[2023-06-27] MEDS: 0.9% Normal Saline (1000mL) 1,000 ML 2000 ML IV (09:19)
[2023-06-27 09:20] LABS: Absolute Neutrophil Count 8.7 X10^3/uL (2.0-7.7); Basophil# 0.03 X10^3/uL; Basophil% 0.3 % (0-1); Eosinophil# 0.14 X10^3/uL; Eosinophils% 1.2 % (0-5); Hemoglobin 14.9 g/dL (12.0-15.0); Lymphocyte % 13.3 % (19-41); Mean Corp Hgb Conc 33.9 g/dL (32-36); Mean Corpuscular Volume 88.5 fL (81-99); Mean Platelet Vol. 9.4 fl (6.2-12.0); Monocyte# 0.82 X10^3/uL; Monocyte% 7.3 % (0-10); NRBC Flagged by Analyzer 0 % (0-5); Neutrophil # 8.74 X10^3/uL (2.7-7.7); Neutrophil % 77.6 % (47-70); Platelet Count 379 K/mm3 (150-450); RBC Distribution Width CV 12.6 % (11.6-14.6); RBC Distribution Width SD 41.1 fl (35.1-43.9); Red Blood Count 4.97 M/mm3 (4.2-5.4); White Blood Count 11.3 K/mm3 (4.4-11.0)
[2023-06-27 09:39] LABS: ALB/GLOB Ratio 1.1 RATIO (0.9-2.4); AST(SGOT) 12 U/L (15-37); Alanine Aminotransfer ALT/SGPT 22 U/L (13-56); Albumin, Serum 3.7 g/dL (3.2-5.0); Alkaline Phosphatase 92 U/L (45-117); Anion Gap 5 (5-15); BUN 22 mg/dL (7-18); BUN/Creat Ratio 31.7 RATIO (10-20); Calcium,Total 9.1 mg/dL (8.5-10.1); Chloride 108 mmol/L (98-107); EST Glomerular Filtration Rate 92 mL/min (>60); Est Glom Filt Rate - Afr Amer 111 mL/min (>60); Estimated Creatinine Clearance 85.61 ml/min; Globulin 3.5 g/dL (2.2-4.2); Glucose 109 mg/dL (74-106); Lipase 38 U/L (13-75); Potassium 3.7 mmol/L (3.5-5.1); Protein, Total 7.2 g/dL (6.4-8.2); Sodium Level 138 mmol/L (136-145); Troponin-I HS 7 pg/mL (3.0-54.0)
--- OUTSIDE RECORDS SUMMARY | 2023-06-27 09:57 | XMS RPT_ITS | CCD ---
Author Name Unknown Address [facility] [address] [place] [address] Organization [facility] Care Team Providers Care Brake Press Operator Name Role Phone Eliza GARCIAPablo Primary Care Provider Medications Current Medications Medication Drug Class(es) Dates Sig (Normalized) Sig (Original) predniSONE 20 mg oral tablet (1 source) Start: 05-13-2022 End: 05-18-2022 take 2 tablets by mouth once daily predniSONE (DELTASONE) 20 mg tablet Take 2 tablets by mouth once daily for 5 days. 10 tablet 0 05/13/2022 05/18/2022 Active Completed/Discontinued Medications Medication Drug Class(es) Dates Sig (Normalized) Sig (Original) amLODIPine 5 mg oral tablet (1 source) Dihydropyridine Calcium Channel Rod Start: 02-01-2022 amLODIPine (NORVASC) 5 mg tablet Take by mouth. 0 02/01/2022 Active Problems Active Problems Problem Classification Problem Date Documented Da te Episodic/Chronic Essential hypertension (1 source) Essential hypertension; Translations: [Essential (primary) hypertension] Onset: 01-28-2012 01-28-2012 Chronic Other upper respiratory infections (1 source) Sore throat symptom; Translations: [Acute pharyngitis, unspecified] Episodic Past or Other Problems Problem Classification Problem Date Documented Da te Episodic/Chronic Other screening for suspected conditions (not mental disorders or infectious disease) (1 source) Patient encounter status; Translations: [Encounter for screening for malignant neoplasm of colon] Onset: 08-15-2015 08-15-2015 Episodic Results Test Name Value Interpretation Reference Range Facil ity Vital Signs Date Time Vital Sign Value Performing Clinician Faci lity 05-13-2022 11:49-0500 Body temperature 97.11 [degF] Franny Camacho APRN.CNP Work Phone: [facility] 05-13-2022 11:49-0500 Body weight 85.28 kg Franny Camacho APRN.KNOCKDOWN MAN Work Phone: [facility] 05-13-2022 11:49-0500 Diastolic blood pressure 90 mm[Hg] Franny Camacho APRN.KNOCKDOWN MAN Work Phone: [facility] 05-13-2022 11:49-0500 Heart rate 93 /min Franny Camacho APRN.KNOCKDOWN MAN Work Phone: [facility] 05-13-2022 11:49-0500 Respiratory rate 20 /min Franny Camacho APRN.KNOCKDOWN MAN Work Phone: [facility] 05-13-2022 11:49-0500 SaO2% (BldA) [Mass fraction] 98 % Franny Camacho APRN.KNOCKDOWN MAN Work Phone: [facility] 05-13-2022 11:49-0500 Systolic blood pressure 140 mm[Hg] Franny Camacho APRN.KNOCKDOWN MAN Work Phone: [facility] Encounters Encounter Date Encounter Type Care Provider Facility Start: 05-13-2022 End: 05-13-2022 [facility] Facility:[facility] Start: 05-13-2022 End: 05-13-2022 Patient encounter procedure Franny Camacho APRN.KNOCKDOWN MAN Work Phone: [facility] Procedures Date Procedure Procedure Detail Performing Clinician Start: 10-27-2020 Colonoscopy Franny Camacho APRN.KNOCKDOWN MAN Work Phone: Start: 09-02-2020 Mammography Frnany Camacho APRN.KNOCKDOWN MAN Work Phone: Plan of Treatment Date Care Activity Detail Author Start: 10-27-2025 Colonoscopy COLONOSCOPY [facility] Start: 10-27-2025 COLORECTAL CANCER SCREENING COLORECTAL CANCER SCREENING [facility] Start: 01-30-2023 HPV TESTING HPV TESTING [facility] Start: 01-30-2023 PAP TESTING PAP TESTING [facility] Start: 01-21-2022 Influenza vaccination INFLUENZA (#1) [facility] Start: 09-02-2021 Mammography MAMMOGRAM [facility] Start: 06-14-2021 COVID-19 VACCINE (4 - Booster for Moderna series) COVID-19 VACCINE (4 - Booster for Moderna series) [facility] Start: 05-23-2021 DEPRESSION ASSESSMENT DEPRESSION ASSESSMENT [facility] Start: 2015 SHINGRIX VACCINE (1 of 2) SHINGRIX VACCINE (1 of 2) [facility] Start: 2010 COLOGUARD (FIT-DNA) COLOGUARD (FIT-DNA) [facility] Start: [address] COLONOGRAPHY [facility] Start: 2010 DIABETES SCREEN DIABETES SCREEN [facility] Start: 2010 FECAL OCCULT BLOOD FECAL OCCULT BLOOD [facility] Start: 2010 LIPID SCREEN LIPID SCREEN [facility] Start: 2010 SIGMOIDOSCOPY SIGMOIDOSCOPY [facility] Start: 01-12-1984 Urine microalbumin profile DTAP,TDAP,TD (1 - Tdap) [facility] Start: 1983 ANNUAL PCP TEAM CHRONIC DISEASE VISIT ANNUAL PCP TEAM CHRONIC DISEASE VISIT [facility] Start: 1983 BP CONTROLLED (<130/80) BP CONTROLLED (<130/80) [facility] Start: 1983 HEPATITIS C SCREENING HEPATITIS C SCREENING [facility] Start: 1983 HIV SCREENING HIV SCREENING [facility] Start: 1965 HEPATITIS B (1 of 3 - 3-dose series) HEPATITIS B (1 of 3 - 3-dose series) [facility] STREP A MOLECULAR (POC) STREP A MOLECULAR (POC) Microbiology Routine Sore throat Ordered: 05/13/2022 [facility] Work Phone: Payers Date Payer Category Payer Unknown MMO MMO [employer] [id number] 2018-Present [phone] [address] [place] [address] PPO [id number] 2018 Unknown [id number] Social History Date Type Detail Facility Tobacco smoking stat us MTIS Never smoked tobacco [facility] Start: 05-13-2022 Alcohol intake Current drinke r of alcohol (finding) [facility] Start: 1965 Sex Assigned At Female C [facility] Progress note 05-13-2022 Note Date & Type Note Facility 05-13-2022 Note HNO ID: [id number] Author: Franny Camacho APRN.KNOCKDOWN MAN Service: ? Author Type: Nurse Practitioner Type: Progress Notes Filed: 05/13/2022 12:35 PM Note Text: CC: Patient presents with: Sore Throat: Sinus pain and pressure, congestion x5 days HPI: Theresa Pendleton is a 57 year old female who presents to the office with complaint of head congestion, sore throat, and sinus symptoms for 5 days. Symptoms are worsening Associated symptoms includes sore throat. Denies headache, body aches, nausea, vomiting , and diarrhea. Treatments tried include nothing so far. with no relief of symptoms. Sick contacts: unknown. History of asthma, frequent episodes of bronchitis, chronic bronchitis, bronchiectasis or COPD: No Smoker: No Seasonal/environmental allergies: No The ROS is otherwise negative. The patient's pmh, medications, allergies, and past visits are reviewed. PHYSICAL EXAM: BP 140/90 Pulse 93 Temp 36.2 ?C (97.1 ?F) Resp 20 Wt 85.3 kg (188 lb) LMP 02/02/2012 SpO2 98% BMI 35.52 kg/m? General appearance: alert, cooperative, pleasant, in no acute distress Head: Normocephalic Eyes: EOM's intact, conjunctiva pink and moist, no icterus, sclera white, non-injected Ears: Right ear: External ear/canal- Normal, TM - clear with good landmarks. Left ear: External ear/canal- Normal, TM - clear with good landmarks Oropharynx:mild erythema, without exudates present Heart: Negative. RRR without obvious murmur, gallop, or rubs. No ectopy. Lungs: clear to auscultation, without rales or wheeze, good air exchange PAST MEDICAL HISTORY Diagnosis Date Glaucoma Hypertension Migraines PAST SURGICAL HISTORY Procedure Laterality Date CARPAL TUNNEL COLONOSCOPY FLX DX W/COLLJ SPEC WHEN PFRMD 08/15/2015 Colonoscopy COLONOSCOPY GEN ANES 10/27/2020 Repeat in 5 years INSERTION OF IUD PAST SURGICAL HISTORY OF 3 c-sections PAST SURGICAL HISTORY OF ovarian torsion TUBAL LIGATION, ALLERGIES Patient has no known allergies. MEDICATIONS no.82/iron/folate no2 (TL FOLATE ORAL) Take by mouth. mv-mn/iron fum/FA/omega3,6,9#3 (WOMEN'S MULTI ORAL) Take by mouth. nortriptyline (PAMELOR) 10 mg capsule Take 10 mg by mouth daily at bedtime. amLODIPine (NORVASC) 5 mg tablet Take by mouth. rosuvastatin (CRESTOR) 10 mg tablet Take 10 mg by mouth once daily. irbesartan (AVAPRO) 300 mg tablet Take 300 mg by mouth once daily. Cetirizine (ZYRTEC) 10 mg cap Calcium-Cholecalciferol, D3, 500 mg-3.125 mcg (125 unit) tab latanoprost (XALATAN) 0.005 % ophthalmic solution Use 1 Drop in both eyes daily at bedtime. Cinnamon Bark 500 mg cap Take 2 tablets by mouth twice daily. BUDESONIDE (RHINOCORT AQUA NASAL) Use in the nose. eletriptan 40 mg tablet Take 40 mg by mouth as needed. may repeat in 2 hours if necessary Patient takes Relpax 40 mg PRN aspirin, enteric coated (ADULT LOW DOSE ASPIRIN) 81 mg EC tablet levomefolate disodium (5-MTHF) 1000 mcg, takes 6 tablets daily biotin tab Take by mouth once daily. (Patient not taking: Reported on 09/02/2020 ) levonorgestrel 20 mcg/24 hr IUD 1 Each by INTRAUTERINE route one time only for 1 dose. Indications: .lot (Patient not taking: Reported on 01/31/2019 ) valsartan (DIOVAN) 160 mg tablet Take 160 mg by mouth once daily. (Patient not taking: Reported on 09/02/2020 ) IBUPROFEN (ADVIL ORAL) Take by mouth. FAMILY HISTORY Problem Relation Age of Onset Hypertension Mother Glaucoma Mother Obesity Mother other (diabetic) Mother other (Atrial Fib) Mother Heart Maternal Grandmother Stroke Paternal Grandfather Hypertension Other 2 siblings Diabetes Brother Diabetes Sister Social History Tobacco Use Smoking status: Never Smokeless tobacco: Never Vaping Use Vaping Use: Never used Substance Use Topics Alcohol use: Yes Comment: very rarely Drug use: No ASSESSMENT/PLAN: 1. Sore throat - ICD9: 462, ICD10: J02.9 - STREP A MOLECULAR (POC) -neg Prednisone daily for 5 days. Prescription instructions reviewed with patient as applicable. Potential red flag symptoms discussed with the patient. Reviewed appropriate action plan to take if red flag symptoms occur. Patient agreeable to treatment plan. Franny Camacho APRN.SALLY [facility] History of Present illness Narrative 05-13-2022 Franny Camacho APRN.SALLY - 05/13/2022 11:58 AM EST Note Date & Type Note Facility 05-13-2022 History of Presen t illness Narrative CC: Patient presents with: Sore Throat: Sinus pain and pressure, congestion x5 days HPI: Theresa Pendleton is a 57 year old female who presents to the office with complaint of head congestion, sore throat, and sinus symptoms for 5 days. Symptoms are worsening Associated symptoms includes sore throat. Denies headache, body aches, nausea, vomiting , and diarrhea. Treatments tried include nothing so far. with no relief of symptoms. Sick contacts: unknown. History of asthma, frequent episodes of bronchitis, chronic bronchitis, bronchiectasis or COPD: No Smoker: No Seasonal/environmental allergies: No The ROS is otherwise negative. The patient's pmh, medications, allergies, and past visits are reviewed. PHYSICAL EXAM: BP 140/90 Pulse 93 Temp 36.2 C (97.1 F) Resp 20 Wt 85.3 kg (188 lb) LMP 02/02/2012 SpO2 98% BMI 35.52 kg/m General appearance: alert, cooperative, pleasant, in no acute distress Head: Normocephalic Eyes: EOM's intact, conjunctiva pink and moist, no icterus, sclera white, non-injected Ears: Right ear: External ear/canal- Normal, TM - clear with good landmarks. Left ear: External ear/canal- Normal, TM - clear with good landmarks Oropharynx:mild erythema, without exudates present Heart: Negative. RRR without obvious murmur, gallop, or rubs. No ectopy. Lungs: clear to auscultation, without rales or wheeze, good air exchange PAST MEDICAL HISTORY Diagnosis Date Glaucoma Hypertension Migraines PAST SURGICAL HISTORY Procedure Laterality Date CARPAL TUNNEL COLONOSCOPY FLX DX W/COLLJ SPEC WHEN PFRMD 08/15/2015 Colonoscopy COLONOSCOPY GEN ANES 10/27/2020 Repeat in 5 years INSERTION OF IUD PAST SURGICAL HISTORY OF 3 c-sections PAST SURGICAL HISTORY OF ovarian torsion TUBAL LIGATION, ALLERGIES Patient has no known allergies. MEDICATIONS no.82/iron/folate no2 (TL FOLATE ORAL) Take by mouth. mv-mn/iron fum/FA/omega3,6,9#3 (WOMEN'S MULTI ORAL) Take by mouth. nortriptyline (PAMELOR) 10 mg capsule Take 10 mg by mouth daily at bedtime. amLODIPine (NORVASC) 5 mg tablet Take by mouth. rosuvastatin (CRESTOR) 10 mg tablet Take 10 mg by mouth once daily. irbesartan (AVAPRO) 300 mg tablet Take 300 mg by mouth once daily. Cetirizine (ZYRTEC) 10 mg cap Calcium-Cholecalciferol, D3, 500 mg-3.125 mcg (125 unit) tab latanoprost (XALATAN) 0.005 % ophthalmic solution Use 1 Drop in both eyes daily at bedtime. Cinnamon Bark 500 mg cap Take 2 tablets by mouth twice daily. BUDESONIDE (RHINOCORT AQUA NASAL) Use in the nose. eletriptan 40 mg tablet Take 40 mg by mouth as needed. may repeat in 2 hours if necessary Patient takes Relpax 40 mg PRN aspirin, enteric coated (ADULT LOW DOSE ASPIRIN) 81 mg EC tablet levomefolate disodium (5-MTHF) 1000 mcg, takes 6 tablets daily biotin tab Take by mouth once daily. (Patient not taking: Reported on 09/02/2020 ) levonorgestrel 20 mcg/24 hr IUD 1 Each by INTRAUTERINE route one time only for 1 dose. Indications: .lot (Patient not taking: Reported on 01/31/2019 ) valsartan (DIOVAN) 160 mg tablet Take 160 mg by mouth once daily. (Patient not taking: Reported on 09/02/2020 ) IBUPROFEN (ADVIL ORAL) Take by mouth. FAMILY HISTORY Problem Relation Age of Onset Hypertension Mother Glaucoma Mother Obesity Mother other (diabetic) Mother other (Atrial Fib) Mother Heart Maternal Grandmother Stroke Paternal Grandfather Hypertension Other 2 siblings Diabetes Brother Diabetes Sister Social History Tobacco Use Smoking status: Never Smokeless tobacco: Never Vaping Use Vaping Use: Never used Substance Use Topics Alcohol use: Yes Comment: very rarely Drug use: No ASSESSMENT/PLAN: 1. Sore throat - ICD9: 462, ICD10: J02.9 - STREP A MOLECULAR (POC) -neg Prednisone daily for 5 days. Prescription instructions reviewed with patient as applicable. Potential red flag symptoms discussed with the patient. Reviewed appropriate action plan to take if red flag symptoms occur. Patient agreeable to treatment plan. Franny Camacho APRN.SALLY documented in this encounter [facility] History of Past illness Narrative 01-28-2012 Note Date & Type Note Facility documented as of this encounter (statuses as of 05/14/2022) [facility] Evaluation note Note Date & Type Note Facility documented in this encounter [facility] Summary Purpose Family History No Family History Records Found Advance Directives No Advanced Directives Records Found Additional Source Comments Source Comments (unrecognize d section and content) In the event this informatio n is protected by the Federal Confidentiality of Alcohol and Drug Abuse Patient Records regulations: The Federal rules restrict any use of the information to criminally investigate or prosecute any alcohol or drug abuse patient.[facility] Reason for Visit (unrecogniz ed section and content) Care Teams (unrecognized sec tion and content) INFORMATION SOURCE (unrecogn ized section and content) FOR RECORDS PERTAINING TO PATIENTS WHO ARE OR HAVE BEEN ENROLLED IN A CHEMICAL DEPENDENCY/SUBSTANCEABUSE PROGRAM, SOME INFORMATION MAY BE OMITTED. This clinical summary was aggregated from multiple sources. Caution should be exercised in using it in the provision of clinical care. This summary normalizes information from multiple sources, and as a consequence, information in this document may materially change the coding, format and clinical context of patient data. In addition, data may be omitted in some cases. CLINICAL DECISIONS SHOULD BE BASED ON THE PRIMARY CLINICAL RECORDS. [employer] provides no warranty or guarantee of the accuracy or completeness of information in this document.
[2023-06-27 10:42] LABS: Bacteria 0 SEEN /hpf (None Seen); Mucous, Urine 0 SEEN /hpf (<or=2+); Red Blood Cells-Urine 0 SEEN /hpf (0-5)
[2023-06-27 10:58] LABS: Color, Urine Yellow (Yellow); Glucose, Dipstick Normal (Normal); Ketone-Dipstick Negative (Negative); Leukocyte Esterase-Dipstick 25 /ul (Negative); Nitrite-Dipstick Negative (Negative); Occult Blood-Urine Negative /ul (Negative); Protein-Dipstick 15 mg/dl (Negative); Urine Bilirubin Dipstick Negative (Negative); Urine Clarity Clear (Clear); Urine Urobilinogen Normal (Normal)
[2023-06-27 11:22] LABS: Squamous Epithelial Cells - UA 0-5 SEEN /hpf (5-10); White Blood Cells 0-5 SEEN /hpf (0-5)
[2023-06-27 12:20] VITALS: BP 135/81; PULSE 76; RESP 14; O2SAT 99
--- NOTE | 2023-06-27 14:10 | CHAPLAIN ---
Type of Pastoral Visit _x__ Initial Visit ___ Follow-up Visit ___ On-call Visit ___ General Patient Visit ___ Spiritual Assessment ___ Family Conference ___ Bereavement ___ Rapid Response ___ Code Blue ___ Other (describe below) Pastoral Care Referral From _x__ Patient _x__ Family ___ Nurse ___ Physician ___ Habilitative Interventionist ___ Leather Fitter ___ Other (describe below) Sacrament/Intervention _x__ Active listening ___ Anointing ___ Restorationist ___ Bereavement ___ Communion _x__ Teodora exploration ___ ___ Life review _x__ Prayer ___ Reconciliation ___ Sacrament of Sick _x__ Supportive presence ___ Wedding ___ Other (describe below) Pastoral Comments
== END 2023-06-27 12:21 | disposition home or self-care (01) ==
PROVIDERS: Emergency Provider Emergency Medicine; PCP Family Medicine; Visit Provider Emergency Medicine
DX: R11.2 Nausea with vomiting, unspecified (principal); Z78.0 Asymptomatic menopausal state; R55 Syncope and collapse; R19.7 Diarrhea, unspecified; E86.0 Dehydration; I10 Essential (primary) hypertension
CPT/HCPCS: 74177; 80053; 81001; 83690; 84484; 85025; 96360; 99283; J7030; Q9967; A4216

== ENCOUNTER → 2023-11-02 | Outpatient (CLI) | payer OTHER, SELFPAY ==
--- NOTE | 2023-11-02 12:25 | BD_ITS ---
STUDY: DUAL ENERGY X-RAY ABSORPTIOMETRY / DXA REASON FOR EXAM: Female, 58 years old. 733.90OsteopeniaBONE DENSITY REASON FOR EXAM TECHNIQUE: Bone Mineral Density (BMD) measurements of lumbar spine and bilateral hips were obtained. COMPARISON: Comparison is made with prior study of July 10, 2015. FINDINGS: Lumbar Spine (L1-L4): g/cm2 (0.933) / T-score (-1.1) / Z-score (0.2) Findings are suggestive of osteopenia with a low fracture risk. Left Femur Total: g/cm2 (0.973) / T-score (0.3) / Z-score (1.1) Left Femoral Neck: g/cm2 (0.679) / T-score (-1.5) / Z-score (-0.3) Right Femur Total: g/cm2 (0.944) / T-score (0.0) / Z-score (0.9) Right Femoral Neck: g/cm2 (0.669) / T-score (-1.6) / Z-score (-0.4) The T-Scores on the most recent prior examination were: Lumbar Spine (L1-L4): There has been worsening of bone density since the previous examination. Left Femur Total: which represents a worsening of 12.5%. Right Femur Total: which represents a worsening of 16.8%. BD/Dexa Bone Density Study IMPRESSION: The patient is considered osteopenic as outlined below according to World Sudhir Organization (WHO) criteria with a moderate fracture risk. There has been worsening of bone density since the previous examination. Reference Information: The T-score is the number of standard deviations above or below the standard which is normal for young adults at their peak bone mineral density. The World Health Organization (WHO) interprets the T-scores as follows: Above -1 Normal bone density Between -1 and -2.5 Osteopenia Equal to / or below -2.5 Osteoporosis As a practical clinical guideline, osteopenia may be graded as follows: Mild -1 through -1.5 Moderate -1.6 through -2.0 Severe -2.1 through -2.4 The Z-score is the number of standard deviations above or below age-matched controls. A Z-score of less than -1.5 would be considered abnormal. References: 1. NIH Osteoporosis and Related Bone Diseases www osteo.org 2. International Society for Clinical Densitometry www iscd.org 3. National Osteoporosis Foundation www nof.org Electronically Signed: Jake Barfield MD at 15:35 EDT ,
== END | disposition home or self-care (01) ==
LOC: OPBD 12:14
PROVIDERS: PCP Family Medicine; Referring Provider Family Medicine; Visit Provider Family Medicine
DX: M85.80 Other specified disorders of bone density and structure, unspecified site (principal)
CPT/HCPCS: 77080

== ENCOUNTER → 2024-03-31 | Outpatient (CLI) | payer OTHER, SELFPAY ==
[2024-03-31 07:54] LABS: Absolute Lymphocyte Count 1.64 X10^3/uL (0.83-4.51); Basophil# 0.05 X10^3/uL; Basophil% 0.8 % (0-1); Eosinophil# 0.19 X10^3/uL; Eosinophils% 2.9 % (0-5); Hematocrit 44.1 % (37-47); Hemoglobin 14.9 g/dL (12.0-15.0); Lymphocyte # 1.64 X10^3/ul (0.83-4.51); Lymphocyte % 25.3 % (19-41); Mean Corp Hgb Conc 33.8 g/dL (32-36); Mean Corpuscular Hgb 30.5 pg (27.0-32.0); Mean Corpuscular Volume 90.4 fL (81-99); Mean Platelet Vol. 9.6 fl (6.2-12.0); Monocyte# 0.56 X10^3/uL; Monocyte% 8.6 % (0-10); NRBC Flagged by Analyzer 0 % (0-5); Neutrophil # 4.03 X10^3/uL (2.7-7.7); Neutrophil % 62.2 % (47-70); Platelet Count 289 K/mm3 (150-450); RBC Distribution Width CV 12.3 % (11.6-14.6); RBC Distribution Width SD 40.5 fl (35.1-43.9); Red Blood Count 4.88 M/mm3 (4.2-5.4); White Blood Count 6.5 K/mm3 (4.4-11.0)
[2024-03-31 08:13] LABS: ALB/GLOB Ratio 1.2 RATIO (0.9-2.4); AST(SGOT) 14 U/L (15-37); Alanine Aminotransfer ALT/SGPT 31 U/L (13-56); Albumin, Serum 3.9 g/dL (3.2-5.0); Alkaline Phosphatase 87 U/L (45-117); Anion Gap 4 (5-15); BUN 18 mg/dL (7-18); BUN/Creat Ratio 33.3 RATIO (10-20); Calcium,Total 9.4 mg/dL (8.5-10.1); Chloride 106 mmol/L (98-107); Cholesterol 177 mg/dL (200); Creatinine, Serum 0.54 mg/dL (0.55-1.02); EST Glomerular Filtration Rate 123 mL/min (>60); Est Glom Filt Rate - Afr Amer 149 mL/min (>60); Globulin 3.2 g/dL (2.2-4.2); Glucose 105 mg/dL (74-106); High Density Lipoprotein 61 mg/dL; Potassium 4.2 mmol/L (3.5-5.1); Protein, Total 7.1 g/dL (6.4-8.2); Sodium Level 136 mmol/L (136-145); Triglycerides 112 mg/dL; Very Low Density Lipoprotein 22 mg/dL (5-40)
[2024-04-02 08:21] LABS: Vitamin D,25 Hydroxy 49.3 ng/mL
== END | disposition home or self-care (01) ==
LOC: LAB 07:19
PROVIDERS: PCP Family Medicine; Referring Provider Family Medicine; Visit Provider Family Medicine
DX: Z00.00 Encounter for general adult medical examination without abnormal findings (principal); M85.80 Other specified disorders of bone density and structure, unspecified site
CPT/HCPCS: 36415; 80053; 80061; 82306; 85025

== ENCOUNTER → 2024-04-11 | Outpatient (CLI) | payer OTHER, SELFPAY ==
--- NOTE | 2024-04-11 08:21 | BI_ITS ---
MAMMOGRAPHY - BILATERAL SCREENING REASON FOR EXAM: Female, 59 years old. Routine annual screening examination. PERTINENT HISTORY: Non-contributory. TECHNIQUE: Digital bilateral breast rona (3D mammographic acquisition) in the CC and MLO projections. 2-D mediolateral oblique (MLO) and craniocaudad (CC) views of both breasts were obtained. CAD: Full Field Digital Mammography with Computer Added Detection was performed. COMPARISON: Comparison is made with prior study dated April 08, 2023 and February 03, 2022. FINDINGS: Breast Composition: The breasts are almost entirely fatty. There are no dominant masses or suspicious calcifications. Stable bilateral fat containing axillary lymph nodes. No other significant abnormalities are identified. There has been no significant change since the prior study. BI/SCRN MAMM (CAD)W/RONA BILAT IMPRESSION: Stable bilateral screening mammogram. Yearly follow-up mammogram recommended. (A) ASSESSMENT CATEGORY: BIRADS Category 2: Benign. A letter regarding these results will be sent to the patient by the facility within 30 days. Approximately 10% of breast cancers are not detected by mammography. A normal mammogram should not delay biopsy of a clinically suspicious abnormality. [id number] Electronically Signed: Jake Barfield MD at 11:27 EST ,
== END | disposition home or self-care (01) ==
LOC: OPBI 08:19
PROVIDERS: PCP Family Medicine; Referring Provider Family Medicine; Visit Provider Family Medicine
DX: Z12.31 Encounter for screening mammogram for malignant neoplasm of breast (principal)
CPT/HCPCS: 77063; 77067

== ENCOUNTER → 2025-03-30 | Outpatient (CLI) | payer OTHER, SELFPAY ==
[2025-03-30 07:43] LABS: Hematocrit 42.7 % (37-47); Hemoglobin 14.8 g/dL (12.0-15.0); Immature Granulocytes Count 0.020 X10^3/uL (0.0-0.0); Mean Corp Hgb Conc 34.7 g/dL (32-36); Mean Corpuscular Volume 89.0 fL (81-99); Mean Platelet Vol. 9.6 fl (6.2-12.0); NRBC Flagged by Analyzer 0 % (0-5); Platelet Count 340 K/mm3 (150-450); RBC Distribution Width CV 12.4 % (11.6-14.6); RBC Distribution Width SD 40.6 fl (35.1-43.9); Red Blood Count 4.80 M/mm3 (4.2-5.4); White Blood Count 7.2 K/mm3 (4.4-11.0)
[2025-03-30 08:08] LABS: AST(SGOT) 19 U/L (<=31); Alanine Aminotransfer ALT/SGPT 23 U/L (<=34); Albumin, Serum 4.3 g/dL (3.4-4.8); Alkaline Phosphatase 95 U/L (35-104); Anion Gap 9 (5-15); BUN 18 mg/dL (4-19); BUN/Creat Ratio 29.9 RATIO (10-20); Calcium,Total 9.4 mg/dL (7.6-11.0); Carbon Dioxide 25.9 mmol/L (21.0-32.0); Chloride 102 mmol/L (98-108); Cholesterol 150 mg/dL (<=200); Globulin 2.6 g/dL (2.2-4.2); Glucose 104 mg/dL (70-99); Low Density Lipoprotein Calc. 78 mg/dL; Potassium 4.1 mmol/L (3.3-5.1); Triglycerides 80 mg/dL; Very Low Density Lipoprotein 16 mg/dL (5-40); cholesterol:hdl ratio screen 2.67
== END | disposition home or self-care (01) ==
LOC: LAB 06:58
PROVIDERS: PCP Family Medicine; Referring Provider Family Medicine; Visit Provider Family Medicine
DX: Z00.00 Encounter for general adult medical examination without abnormal findings (principal); R73.01 Impaired fasting glucose
CPT/HCPCS: 36415; 80053; 80061; 83036; 85025